=== PATIENT | female | born 1975 | race African-American/Black ===

== ENCOUNTER 2017-05-16 04:19 | Emergency (ER) | payer OTHER ==
[2017-05-16 04:35] VITALS: BP 167/107; PULSE 100; TEMP 98.8; BMI 27.4
[2017-05-16] MEDS ORDERED: GABAPENTIN 300 MG CAPSULE (FP) PO ONE ×2 (05:02→05:12)
[2017-05-16] MEDS ORDERED: predniSONE 20 MG TABLET (UD) PO ONE (05:02)
[2017-05-16] MEDS ORDERED: GABAPENTIN 300 MG CAPSULE (FP) ONE ×2 (05:05→05:12)
--- NOTE | 2017-05-16 05:05 | PDOC ---
History of Present Illness - General Chief Complaint: Wound Stated Complaint: INCISIONAL PAIN Time Seen by Provider: 05/16/17 04:59 History Source: Patient Exam Limitations: No Limitations - History of Present Illness Initial Comments: 05/16/17 05:05 This is a 41-year-old female who comes in complaining of abdominal pain. Patient had cold sculpturing approximately 2 weeks ago and says that the pain of the nerve regeneration is so severe she needs something for the pain. Patient otherwise has not contacted the medical spot where she had a done or anyone. Patient denies any fever or chills. Patient denies any nausea vomiting or diarrhea. Patient denies any other complaints. PAST MEDICAL HISTORY: no significant history PAST SURGICAL HISTORY: no significant history FAMILY HISTORY: no pertinant history SOCIAL HISTORY: Pt lives with family and is employed. MEDICATIONS: reviewed ALLERGIES: As per nursing notes Review of Systems General: No fevers or chills, no weakness, no weight loss HEENT: No change in vision. No sore throat,. No ear pain CardioVascular: No chest pain or shortness of breath Respiratory:No cough, or wheezing. Gastrointestinal: no nausea, vomitting, diarrhea or constipation, No rectal bleeding Genitourinary: No dysuria, hematuria, or frequency Musculoskeletal: No joint or muscle pain or swelling Neurologic: No headache, vertigo, dizziness or loss of consciousness Psychiatric: nor depression Skin: No rashes or easy bruising Endocrine: no increased thirst or abnormal weight change Allergic: no skin or latex allergy All other systems reviewed and normal Exam: General: Well-nourished well-developed individual, no acute distress HEENT: Throat: Normal, tonsils normal, no erythema or exudate Neck: Supple, no meningeal signs, no lymphadenopathy Eyes::Pupils equal reactive and round, extraocular motion intact Chest: Nontender to palpation Cardiac: S1-S2 normal, regular rate and rhythm, no murmurs rubs or gallops Respiratory: Lungs clear to auscultation bilateral Abdomen: Soft, nondistended, normal bowel sounds, nontender to palpation diffusely Extremities: Warm, dry, no cyanosis, clubbing, or edema Skin: No rashes, no erythema, no blistering no crepitus under the skin or any abnormalities Neuro: Alert and oriented x3, CN II - XII intact, nonfocal exam with normal strength, normal sensation, normal reflexes, normal gait, Psych: Normal mood and affect Assessment and plan: This is a 41-year-old female who comes in complaining of neuropathic pain secondary to the nerve regenerating after cold sculpturing. Patient Is on a low-dose a gabapentin for the pain. Patient's gabapentin was increased and doubled and patient was told that she could increase it again in 1 week if she still is experiencing significant discomfort. Otherwise there was no suspicion of an infectious process or acute intra-abdominal process. Past History - Past Medical History Allergies/Adverse Reactions: Allergies Allergy/AdvReac Type Severity Reaction Status Date / Time No Known Allergies Allergy Unverified 05/16/17 04:30 Home Medications: Ambulatory Orders Gabapentin 600 mg PO TID #42 tablet 05/16/17 Losartan/Hydrochlorothiazide [Hyzaar 50-12.5 Tablet] 1 each PO DAILY 05/16/17 Anemia: Yes COPD: No Disorders: Yes (UTERINE FIBROIDS) HTN: Yes Thyroid Disease: Yes (GOITER) - Surgical History Abdominal Surgery: Yes (COOL SCULPTING 05/03, LIPOSUCTION) - Suicide/Smoking/Psychosocial Hx Smoking History: Never smoked *Physical Exam - Vital Signs Last Vital Signs Temp Pulse Resp BP Pulse Ox 98.8 F 100 H 20 167/107 100 05/16/17 04:32 05/16/17 04:32 05/16/17 04:32 05/16/17 04:32 05/16/17 04:32 *DC/Admit/Observation/Transfer Diagnosis at time of Disposition: Neuropathic pain - Discharge Dispostion Disposition: HOME Condition at time of disposition: Stable Admit: No - Prescriptions Prescriptions: Gabapentin 600 mg PO TID #42 tablet - Referrals Referrals: Jack Leyva [Primary Care Provider] - - Patient Instructions Additional Instructions: Take 600 mg of Neurontin 3 times a day starting today continue it for 4 days if he still or having significant pain increase your dose to 900 mg a day and 4 days after that increase to 1200mg 3 times a day. The maximum that you can take is 1200 mg 3 times a day. Return to the emergency department immediately with ANY new, persistent or worsening symptoms. Continue any medications as previously prescribed by your physician. You should follow up with your primary doctor as soon as possible regarding today's emergency department visit. . Please make sure your doctor reviews the results of your emergency evaluation. Thank you for coming to the Emergency Department today for your care. It was a pleasure to see you today. Please note that your evaluation is INCOMPLETE until you follow-up with your doctor. - Post Discharge Activity
[2017-05-16] MEDS ORDERED: predniSONE 20 MG TABLET (UD) ONE (05:06)
== END 2017-05-16 05:46 | disposition home or self-care (01) ==
LOC: FER 04:19
DX: M79.2 Neuralgia and neuritis, unspecified (principal); Z98.890 Other specified postprocedural states; I10 Essential (primary) hypertension; D64.9 Anemia, unspecified; E07.9 Disorder of thyroid, unspecified
CPT/HCPCS: 99281-25